=== PATIENT | male | born 1995 | race Caucasian/White ===

== ENCOUNTER → 2017-11-10 | Day surgery (SDC) | payer OTHER ==
[~2017-11-10] VITALS: Ht 172.7 cm; Wt 52.5 kg
[~2017-11-10] MED LIST: BACITRACIN TOP OINT 15 GM TUBE ONE; BUPIVACAINE/EPINEPHRINE 0.25% 50 ML VIAL ONE; CHLORHEXIDINE GLUCONATE 2 % 1 PACK (2 CLOTHS) TOPICAL PRN; CIPROFLOXACIN/DEXT 400 MG/200 ML IV SCH; FAMOTIDINE 20 MG/2 ML VIAL ONE; HYDROmorphone HCL PF 2 MG/ML VIAL ONE; LACTATED RINGER'S 1000 ML IV PRN; METOPROLOL TARTRATE 25 MG TAB PO PRN; MIDAZOLAM HCL 2 MG/2 ML VIAL ONE; MORPHINE SULFATE 2 MG/ML INJ ONE; NAPR500 PO; POVIDONE IODINE 5% (ANTISEPSIS KIT) 4 APPLICATIONS EACH NARE PRN; SODIUM CHLORID 0.9% 500 ML IV PRN
[2017-11-10 07:57] LABS: HEMATOCRIT 41.4 % (39.0-51.0); HEMOGLOBIN 13.5 GM/DL (13.0-17.0); MEAN CELL VOLUME 87.1 FL (80.0-100.0); MEAN CORPUSCULAR HEMOGLOBIN 28.5 PG (27.0-34.0); MEAN CORPUSCULAR HGB CONC 32.7 % (32.0-36.0); MEAN PLATELET VOLUME 7.3 FL (7.0-11.0); PLATELET COUNT 271 TH/MM3 (150-450); RED BLOOD COUNT 4.75 MIL/MM3 (4.50-5.90); RED CELL DISTRIBUTION WIDTH 12.8 % (11.6-17.2); WHITE BLOOD COUNT 9.1 TH/MM3 (4.0-11.0)
[2017-11-10 11:09] VITALS: PULSE 77
[2017-11-10 13:29] VITALS: BP 142/96; PULSE 73; RESP 16; TEMP 98.6; O2SAT 98
--- NOTE | 2017-11-11 16:47 | PD.OP ---
Operative Report Date of Surgery: Nov 10, 2017 Preoperative Diagnosis: (1) Fracture, metacarpal shaft Postoperative Diagnosis: (1) Fracture, metacarpal shaft Procedure: Open reduction internal fixation of left fifth metacarpal shaft fracture (51206) Surgeon: Jorge Bhatia Project Development Engineer(s): . Operation and Findings: 21-year-old male who presented after sustaining a left fifth metacarpal shaft fracture. Given the patient's level of angulation, shortening, and extensor lag the risks benefits and alternative treatments were discussed. All questions were answered. The patient and patient's family expressed understanding. The patient elected to assume the risks of open reduction internal fixation. Informed consent was obtained. Surgical site was marked in the preoperative holding bay. The patient was taken to the operating room. All pressure points were padded. A surgical timeout was performed. After the smooth induction of general anesthesia, the surgical site was blocked with quarter percent Marcaine with epinephrine. An appropriately padded upper extremity tourniquet was placed. The surgical site was prepped and draped in the usual sterile fashion. The upper extremity was exsanguinated using an Esmarch and the tourniquet inflated to 200 mmHg. The skin was incised over the dorsal fifth metacarpal. Blunt dissection was used to visualize the sensory nerve branches and extensor tendons which were kept free from injury and with adequate soft tissue coverage. The extensor tendons were retracted radially. The periosteum overlying the fifth met of carpal was sharply incised. Periosteal elevator was used to raise periosteal flaps radially and ulnarly. The fracture was visualized. After distraction of the small finger, the fracture site was curetted. After reducing the fracture fragments, they were held in reduction using the reduction forceps. A 1.5 mm Y plate was cut to size , contoured, and fixated to the reduced fifth metacarpal. Screw length was checked on mini C arm and adjusted as appropriate. Final C-arm pictures were taken, showing excellent reduction of the fracture fragment. A tenodesis maneuver showed absence of rotational deformity of the small finger. The surgical site was copiously irrigated. The periosteal flaps were reapproximated with a running 3-0 Vicryl. The skin was reapproximated with interrupted 4-0 nylon's. Incision was cleaned. The incision was dressed with bacitracin Xeroform gauze fluffs and an appropriately padded ulnar gutter splint. The tourniquet was released, totaling 88 minutes. All digits pinked up nicely. The patient was awoken from anesthesia and arrived stable and doing well to the PACU. All needle sponge and instrument counts were correct 2. Jorge Bhatia MD Nov 11, 2017 16:47
== END | disposition home or self-care (01) ==
LOC: PHSDC 06:57
PROVIDERS: ATTEND Student in an Organized Health Care Education/Training Program
DX: S62.327A Displaced fracture of shaft of fifth metacarpal bone, left hand, initial encounter for closed fracture (principal)
CPT/HCPCS: 01830; 26615; 36415; 76000; 85027; C1713; J0744; J1170; J2250; J2270; J3010; J7120